=== PATIENT | female | born 1955 | race Two or more races ===

== ENCOUNTER 2018-05-16 19:23 | Emergency (ER) | payer MEDICARE, OTHER ==
[~2018-05-16] VITALS: Ht 175.3 cm; Wt 136.1 kg
[2018-05-16] MEDS ORDERED: Prednisone20 MG PO (20:00)
[2018-05-16] MEDS ORDERED: Aerochamber1 EACH INH (20:02)
== END 2018-05-16 20:12 | disposition home or self-care (01) ==
LOC: ER 19:23
DX: J42 Unspecified chronic bronchitis (principal); Z88.0 Allergy status to penicillin; Z91.09 Other allergy status, other than to drugs and biological substances
CPT/HCPCS: 71046; 99283-25